=== PATIENT | female | born 1985 | race Caucasian/White ===

== ENCOUNTER 2017-03-13 19:14 | Emergency (ER) | payer OTHER | END 2017-03-13 20:30 | disposition home or self-care (01) | LOC: ER1 19:14 | DX: S61.412A Laceration without foreign body of left hand, initial encounter (principal); W26.0XXA Contact with knife, initial encounter; Y92.009 Unspecified place in unspecified non-institutional (private) residence as the place of occurrence of the external cause | CPT/HCPCS: 12001; 99283 ==

== ENCOUNTER 2017-06-04 20:23 | Emergency (ER) | payer OTHER ==
[2017-06-04 22:18] LABS: HEMOGLOBIN 14.8 gm/dl (12.3-15.3); WHITE BLOOD COUNT 10.4 K/UL (4.5-11.0)
[2017-06-04 22:39] LABS: BUN/CREATININE RATIO 23 (0-10)
== END 2017-06-05 | disposition home or self-care (01) ==
LOC: ER1 20:23
PROVIDERS: Physician Assistant Medical
DX: H92.02 Otalgia, left ear (principal); R68.84 Jaw pain; H91.91 Unspecified hearing loss, right ear; Z98.890 Other specified postprocedural states
CPT/HCPCS: 36415; 70450; 70486; 80053; 84703; 85025; 86140; 96374; 99283; J1885